=== PATIENT | female | born 1995 | race Caucasian/White ===

== ENCOUNTER 2016-11-21 11:43 | Emergency (ER) | payer BC, MEDICAID ==
[2016-11-21 12:45] VITALS: BP 115/63
--- NOTE | 2016-11-21 13:08 | ED ---
Skin Complaint - HPI Summary HPI Summary: Patient presents with [id number] bruising and swelling with erythema surrounding of the medial left ankle after sustaining a bug bite 5 days ago. Wound has been worsening and with 8/10 pain, discrete and localized. Pain does not radiate and denies pruritis. Denies known tick bite. Unknown type of bug. Denies other symptoms. Denies numbness or tingling. - History of Current Complaint Chief Complaint: EDGeneral Time Seen by Provider: 11/21/16 12:28 Stated Complaint: BITE ON LT ANKLE Hx Obtained From: Patient Hx Last Menstrual Period: 02/20/16 Onset/Duration: Started Days Ago Skin Exposure Onset/Duration: Hours Ago Timing: Constant Onset Severity: Moderate Current Severity: Moderate Pain Intensity: 8 Pain Scale Used: 0-10 Numeric Skin Location: Discrete, Leg Character: Swelling, Pain, Redness Aggravating Symptom(s): Nothing Alleviating Symptom(s): Nothing Associated Signs & Symptoms: Tenderness Related History: Insect Bite/Sting, Possible Reaction to: Insect - Allergy/Home Medications Allergies/Adverse Reactions: Allergies Allergy/AdvReac Type Severity Reaction Status Date / Time No Known Allergies Allergy Verified 03/08/16 15:05 PMH/Surg Hx/FS Hx/Imm Hx Previously Healthy: Yes - Surgical History Surgery Procedure, Year, and Place: - Immunization History Hx Pertussis Vaccination: No Immunizations Up to Date: Unable to Obtain/Confirm Infectious Disease History: No Infectious Disease History: Denies: Traveled Outside the [place] in Last 30 Days - Family History Family History: no cardio vascular issues in family lineage - Social History Occupation: Unemployed Lives: With Family Alcohol Use: None Hx Substance Use: No Substance Use Type: Reports: None Hx Tobacco Use: Yes Smoking Status (MU): Light Every Day Tobacco Smoker Type: Cigarettes Amount Used/How Often: 5-6 cig/day Length of Time of Smoking/Using Tobacco: 2 YEARS Have You Smoked in the Last Year: Yes Review of Systems Constitutional: Negative Eyes: Negative Cardiovascular: Negative Respiratory: Negative Positive: no symptoms reported, see HPI Musculoskeletal: Negative Positive: Other - [id number] bruising and swelling with erythema surrounding of the medial left ankle Neurological: Negative Psychological: Normal All Other Systems Reviewed And Are Negative: Yes Physical Exam Triage Information Reviewed: Yes Vital Signs On Initial Exam: Initial Vitals Temp Pulse Resp BP Pulse Ox 96.8 F 86 17 112/72 98 07/09/17 11:53 11/21/16 11:53 11/21/16 11:53 11/21/16 11:53 11/21/16 11:53 Vital Signs Reviewed: Yes Appearance: Positive: Well-Appearing, Well-Nourished Skin: Positive: Warm, Skin Color Reflects Adequate Perfusion, Other - [id number] bruising and swelling with erythema surrounding of the medial left ankle Head/Face: Positive: Normal Head/Face Inspection Eyes: Positive: EOMI, BABATUNDE, Conjunctiva Clear Neck: Positive: Supple, No Lymphadenopathy Respiratory/Lung Sounds: Positive: Clear to Auscultation, Breath Sounds Present Cardiovascular: Positive: Normal, RRR, Pulses are Symmetrical in both Upper and Lower Extremities Musculoskeletal: Positive: Normal, Strength/ROM Intact Neurological: Positive: Sensory/Motor Intact, Alert, Oriented to Person Place, Time, Speech Normal Psychiatric: Positive: Normal AVPU Assessment: Alert - Robi Coma Scale Best Eye Response: 4 - Spontaneous Best Motor Response: 6 - Obeys Commands Best Verbal Response: 5 - Oriented Diagnostics - Vital Signs Vital Signs Temp Pulse Resp BP Pulse Ox 11/21/16 12:44 98.3 F 72 17 115/63 11/21/16 11:56 96.8 F 68 17 112/72 98 11/21/16 11:53 96.8 F 86 17 112/72 98 - Laboratory Lab Statement: Any lab studies that have been ordered have been reviewed, and results considered in the medical decision making process. Course/Dx - Course Course Of Treatment: Patient presents [id number] bruising and swelling with erythema surrounding of the medial left ankle after sustaining a bug bite. Area is slightly warm. Treatment options discussed. Keflex ordered as rx. Return precautions given. - Differential Diagnoses - Skin Complaint Differential Diagnoses: Impetigo, Poison [place], Poison [place], Tick Born Illness - Diagnoses Provider Diagnoses: Bug bite with infection Discharge - Discharge Plan Condition: Stable Disposition: HOME Prescriptions: Cephalexin CAP* [Keflex CAP*] 500 mg PO QID #28 cap MDD 4 Patient Education Materials: Insect Bite or Sting (ED) Referrals: No Primary Care Phys,NOPCP [Primary Care Provider] - Additional Instructions: Take the keflex four times daily for 7 days Take ibuprofen for any discomfort
== END 2016-11-21 12:45 | disposition home or self-care (01) ==
LOC: ED 11:43
DX: S90.562A Insect bite (nonvenomous), left ankle, initial encounter (principal); L08.9 Local infection of the skin and subcutaneous tissue, unspecified; W57.XXXA Bitten or stung by nonvenomous insect and other nonvenomous arthropods, initial encounter; Y93.9 Activity, unspecified; Y92.9 Unspecified place or not applicable; F17.210 Nicotine dependence, cigarettes, uncomplicated
CPT/HCPCS: 99282

== ENCOUNTER 2018-05-23 09:15 | Inpatient (IN) | payer BC, MEDICAID ==
[2018-05-23] MEDS ORDERED: ceFOXitin 2 GM IVPREMIX* 2 GM/50 ML BAG IVPB ONE (10:58)
[2018-05-23] MEDS ORDERED: Lactated Ringers 1000 ML Bag* 1,000 ML IV ONE (10:58)
[2018-05-23] MEDS ORDERED: Sodium Citrate/Citric Acid* 15 ML UDC PO ONE (10:58)
[2018-05-23] MEDS ORDERED: Lactated Ringers 1000 ML Bag* 1,000 ML IV SCH ×2 (11:00→14:00)
--- NOTE | 2018-05-23 11:09 | HP ---
General Information - Reason for Visit at 40 weeks EGA, SROM atv 6am, confirmed by ROM+, prior section scheduled for a repeat tomorrow. - General Information Maternal Age: 20 Grav: 1 Para: 0 SAB: 0 IEA: 0 Estimated Due Date: 07/01/15 Determined By: Early Ultrasound Gestational Age in Weeks/Days: 40 Maternal Blood Type and Rh: O Positive - Results this Serology/RPR Result: Non-Reactive Rubella Result: Immune HBsAg Result: Negative HIV Result: Negative GBS Culture Result: Negative Past Medical History Delivery History: Hx C/Section, See Records Pertinent Past Medical History: See Records Past Medical History Comment: Depression Anxiety Eczema Pertinent Past Surgical History: See Records Pertinent Family History: See Records - Antepartal Records Antepartal Records: Reviewed, Complicated by: - Prior , Obesity Review of Systems Constitutional: Comfortable CV Complaint: No Respiratory: Shortness of Breath: No Gastrointestinal: No Nausea/Vomiting, Normal Bowel Movement Genitourinary: Leaking Fluid, No Dysuria, No Bleeding Musculoskeletal: No Complaint, No Epigastric Pain Neurological: No Headache, No Visual Changes Movement: Normal Exam Allergies/Adverse Reactions: Allergies No Known Allergies Allergy (Verified 03/08/16 15:05) Temp 98.4 BP 120/67 P 75 RR 20 Pulse Px 99% RA Lab Values - Entire Visit: Laboratory Tests 05/23/18 09:35 Vag Amniotic Fld Detect Positive - Measurements Height: 5 ft 2 in Weight: 203 lb Body Mass Index (BMI): 37.1 Pre- Weight: 150 lb - Exam Breast: Breast Exam Deferred CVA: No CVA Tenderness Extremities: No Edema Heart: Normal Rhythm/Heart Sounds HEENT: No Significant Findings Lungs: Clear Bilaterally Rectal: Rectal Exam Deferred Reflexes: DTR 2+ Thyroid: No Thyromegaly - Abdominal Exam Abdomen Exam: Non-Tender - Ultrasound/Biophysical Profile Biophysical Profile: Normal Reactive NST Targeted Exam Findings See L&D Outpatient Visit Provider Note for Findings: N/A Cervical Exam: 1cm Effacement: 50% Station: -2 Presenting Part: Vertex Membrane Status: SROM Bleeding/Discharge: None EFM Findings - External Monitor Findings Baseline Heart Rate: 140 External Monitor Findings: Accelerations Present Contractions: Regular, Mild, < 45 Seconds Assessment/Plan - Assessment Term with SROM prior section. - Obstetrical Risk Factors Obstetrical Risk Factors: Obesity, Previous C/Section in Labor - Plan Plan: IV Hydration, Expedite C/S Delivery, Antibiotic Prophylaxis - Date/Time of Admission Date of Admission: 05/23/18 Time of Admission: 11:15
[2018-05-23] MEDS ORDERED: Acetaminophen IV 1GM/100ML * 1,000 MG/100 ML VIAL IVPB ONE (12:53)
[2018-05-23] MEDS ORDERED: DiMENhydriNATE IV* 50 MG/ML VIAL IV PUSH PRN (12:53)
[2018-05-23] MEDS ORDERED: Naloxone* 0.4 MG/ML 1 ML VIAL IV PRN ×2 (12:53→12:54)
[2018-05-23] MEDS ORDERED: fentaNYL* 50 MCG/ML 2 ML VIAL (100 MCG VIAL) IV PRN (12:53)
[2018-05-23] MEDS ORDERED: oxyCODONE TAB* 5 MG TAB PO PRN ×2 (12:53→12:54)
[2018-05-23] MEDS ORDERED: Ondansetron INJ* 2 MG/ML VIAL IV PRN (12:54)
[2018-05-23] MEDS ORDERED: Nalbuphine* 10 MG/ML 1 ML VIAL IV PRN (12:54)
[2018-05-23] MEDS ORDERED: Ketorolac INJ* 30 MG/ML 1 ML VIAL IV SCH ×2 (13:00)
[2018-05-23] MEDS ORDERED: Dibucaine 1% 28.35 GM TUBE PR PRN (13:24)
[2018-05-23] MEDS ORDERED: Witch Hazel PAD* JAR TOPICAL PRN (13:24)
[2018-05-23] MEDS ORDERED: Glycerin ADULT SUPP PR PRN (13:24)
[2018-05-23] MEDS ORDERED: Zolpidem TAB* 5 MG PO PRN (13:24)
[2018-05-23] MEDS ORDERED: Oxytocin in LR* 20 UNITS/1,000 ML BAG IVPB ONE (14:08)
--- NOTE | 2018-05-23 17:20 | OP ---
CC: Dr. Mckay Cabrera, [facility] OPERATIVE REPORT: DATE OF OPERATION: 05/23/18 DATE OF : 89 SURGEON: Mitch Gusman MD CINDER CRUSHER OPERATOR SURGEON: Dr. Cabrera. ANESTHESIA: Spinal. PRE-OP DIAGNOSIS: at 40 weeks with spontaneous rupture of membranes in labor with a prior section. POST-OP DIAGNOSIS: at 40 weeks with spontaneous rupture of membranes in labor with a prior section. OPERATIVE PROCEDURE: Repeat low transverse section. ESTIMATED BLOOD LOSS: 600 cc. SPECIMEN SENT TO PATHOLOGY: Cord blood. FLUIDS: She received 2500 cc of IV crystalloid fluid. URINE OUTPUT: Clear. FINDINGS: Delivery of a male over clear fluid with vacuum assistance, weighing 10 pounds and 4 ounces with Apgars of 9 and 9. The placenta, uterus, adnexa, bowel and bladder were all within nor mal limits and there were no complications during this procedure. DESCRIPTION OF PROCEDURE: The patient was taken to the operating room where she was identified. She was placed on the operating table, where a spinal anesthetic was obtained without difficulty. She w as then placed in the supine position with a leftward tilt, prepped and draped in a normal sterile fa shion. A Pfannenstiel skin incision was made with a knife and carried through to underlying layer of fascia. The fascia was nicked in the midline and extended laterally with curved Stiles scissors. The fascia was then grasped superiorly and inferiorly with Hamzah clamps and dissected off sharply from t he rectus muscle. The rectus muscle was in the midline bluntly. The peritoneum was identi fied, grasped with pickups, entered sharply with Metzenbaum scissors and extended superiorly and infe riorly sharply. A bladder blade was inserted into the patient's abdomen. A bladder flap was created using Metzenbaum scissors over which the bladder blade was then reinserted. A low transverse uterin e incision was made with a knife and extended laterally with bandage scissors. The amniotic sac was ruptured. The infant's head was then grasped. There was some difficulty delivering the baby, so we applied vacuum to the infant's head and were able to deliver the infant without any incident. The re st of the 's body was then delivered. The cord was clamped and cut, the was handed off to a waiting firewall security engineer. Cord bloods were then obtained. The placenta was removed manually. The uterus was then exteriorized, cleared of all clot and debris using moist laparotomy sponges. The napaimute rine incision was then closed using 0 Polysorb suture in a running locked fashion with a second imbri cating layer of 0 Polysorb suture. The uterus was then returned to the patient's abdomen. The gutte rs were then cleared of all clot and debris using moist laparotomy sponges and 500 cc of irrigation. Irrigation fluid was suctioned and the sponges were removed from the patient's abdomen. At this poi nt, the peritoneum was then closed using 3-0 Polysorb suture in a running fashion. The fascia was cl osed using 0 Polysorb suture in a running fashion. Shahram's layer was approximated using interrupted 3-0 Polysorb sutures and the skin was closed with a 4-0 Monocryl subcuticular stitch. The patient to lerated the procedure well. Sponge, lap, and needle counts were correct x2. She was then transferre d to the recovery room area in stable condition. [id number]/[facility] #: [id number]
[2018-05-23] MEDS: Scopolamine 1.5 mg* PATCH TRANSDERM PRN ×3 (17:26→19:45)
[2018-05-23] MEDS: Simethicone TAB* 80 MG TAB.CHEW PO SCH ×2 (17:27→20:38)
[2018-05-23] MEDS: Acetaminophen TAB* 325 MG PO SCH ×2 (17:30→23:34)
[2018-05-23] MEDS: Docusate CAP* 100 MG PO SCH ×2 (19:36→20:38)
[2018-05-23] MEDS: Ketorolac INJ* 30 MG/ML 1 ML VIAL IV SCH (20:38)
[2018-05-24] MEDS: Ketorolac INJ* 30 MG/ML 1 ML VIAL IV SCH ×2 (02:42→08:30)
[2018-05-24] MEDS ORDERED: oxyCODONE/Acetamin 5/325 MG* TAB PO PRN (04:22)
[2018-05-24] MEDS: Acetaminophen TAB* 325 MG PO SCH (04:43)
[2018-05-24 07:24] LABS: ABS Basophils 0 10^3/ul (0-0.2); ABS Eosinophils 0 10^3/ul (0-0.6); ABS Lymphocytes 1.9 10^3/ul (1.0-4.8); ABS Monocytes 1.3 10^3/ul (0-0.8); ABS Neutrophils 11.6 10^3/ul (1.5-7.7); ABS Nucleated RBC 0 10^3/ul; Eosinophil % 0.1 %; Hematocrit 32 % (35-47); Hemoglobin 10.5 g/dl (12.0-16.0); Lymphocyte % 12.7 %; Mean Corpuscular HGB Conc 33 g/dl (31-36); Mean Corpuscular Hemoglobin 27 pg (27-31); Mean Corpuscular Volume 83 fL (80-97); Mean Platelet Volume 9.7 fL (7.4-10.4); Nucleated Red Blood Cells % 0; Platelet Count 172 10^3/ul (150-450); Red Blood Count 3.84 10^6/ul (4.00-5.40); Red Cell Distribution Width 15 % (10.5-15); White Blood Count 14.8 10^3/ul (3.5-10.8)
[2018-05-24] MEDS: Docusate CAP* 100 MG PO SCH ×3 (08:29→21:09)
[2018-05-24] MEDS: Simethicone TAB* 80 MG TAB.CHEW PO SCH ×4 (08:29→21:09)
[2018-05-24] MEDS ORDERED: Ferrous Gluconate TAB* 324 MG TAB PO SCH (09:00)
[2018-05-24] MEDS: oxyCODONE/Acetamin 5/325 MG* TAB PO PRN ×3 (10:45→22:34)
[2018-05-24] MEDS ORDERED: Acetaminophen TAB* 325 MG PO PRN (13:00)
[2018-05-24] MEDS: Ibuprofen TAB* 600 MG PO PRN ×2 (14:27→21:09)
[2018-05-24 16:50] LABS: Hematocrit 31 % (35-47); Hemoglobin 10.3 g/dl (12.0-16.0)
[2018-05-25] MEDS: oxyCODONE/Acetamin 5/325 MG* TAB PO PRN ×4 (02:34→20:38)
[2018-05-25] MEDS: Ibuprofen TAB* 600 MG PO PRN ×3 (04:30→18:18)
[2018-05-25] MEDS: Simethicone TAB* 80 MG TAB.CHEW PO SCH ×4 (08:29→20:39)
[2018-05-25] MEDS: Docusate CAP* 100 MG PO SCH ×3 (08:29→20:38)
[2018-05-26] MEDS: oxyCODONE/Acetamin 5/325 MG* TAB PO PRN ×4 (00:30→13:27)
[2018-05-26] MEDS: Ibuprofen TAB* 600 MG PO PRN ×2 (03:45→09:49)
[2018-05-26 08:07] VITALS: BP 113/56
[2018-05-26] MEDS: Docusate CAP* 100 MG PO SCH (09:27)
[2018-05-26] MEDS: Simethicone TAB* 80 MG TAB.CHEW PO SCH ×2 (09:27→13:27)
[2018-05-26] MEDS ORDERED: Scopolamine PATCH Remove* 1 NOTE MISC PATCH OFF ONE (12:55)
== END 2018-05-26 13:47 | disposition home or self-care (01) | DRG 540 ==
LOC: MCHOBOUT 09:15 → MCHOB 10:41
PROVIDERS: ADMIT Obstetrics & Gynecology; ATTEND Obstetrics & Gynecology
PROC: 4A1HXCZ Monitoring of Products of Conception, Cardiac Rate, External Approach (ICD-10-PCS; 2018-05-23)
PROC: 10D00Z1 Extraction of Products of Conception, Low, Open Approach (ICD-10-PCS; principal; 2018-05-23 12:07)
DX: O34.211 Maternal care for low transverse scar from previous cesarean delivery (principal); O99.214 Obesity complicating childbirth; O75.89 Other specified complications of labor and delivery; R55 Syncope and collapse; Z3A.40 40 weeks gestation of pregnancy; Z37.0 Single live birth; Z87.891 Personal history of nicotine dependence; Z88.8 Allergy status to other drugs, medicaments and biological substances
CPT/HCPCS: 36415; 84112; 85014; 85018; 85025; A9270-GY; J0694; J1100; J1885; J2405; J2590